=== PATIENT | male | born 1965 | race Caucasian/White ===

== ENCOUNTER 2021-01-09 11:13 | Outpatient (REF) | payer BC, SELFPAY ==
[2021-01-09 11:59] LABS: Estimated Average Glucose 157 mg/dL; Hemoglobin A1c % 7.1 %
[2021-01-09 12:19] LABS: Alanine Aminotransferase 89 U/L (0-40); Albumin Level 4.5 g/dL (3.5-5.0); Alkaline Phosphatase 95 U/L (39-117); Aspartate Amino Transferase 57 U/L (5-37); Bilirubin Direct 0.6 mg/dL (0.0-0.5); Bilirubin Total 1.5 mg/dL (0.0-1.0); Cholesterol 195 mg/dL; Glucose Fasting 206 mg/dL (60-99); HDL Cholesterol 28 mg/dL; LDL Cholesterol Calculated 112 mg/dl; Total Protein 7.6 g/dL (6.5-8.0); Triglycerides 275 mg/dL
[2021-01-09 13:18] LABS: Reflex LDLD? No
== END 2021-01-09 11:14 | disposition home or self-care (01) ==
LOC: HO.LNP 11:13
PROVIDERS: PCP Internal Medicine; Visit Provider Internal Medicine
DX: R79.89 Other specified abnormal findings of blood chemistry (principal); E78.2 Mixed hyperlipidemia; E11.9 Type 2 diabetes mellitus without complications
CPT/HCPCS: 80061; 80076; 82947; 83036

== ENCOUNTER 2021-07-11 10:32 | Outpatient (REF) | payer BC, SELFPAY ==
[2021-07-11 10:39] LABS: MANUAL DIFF FLAG NO
[2021-07-11 11:00] LABS: Basophils Absolute Auto 0.1 X10*3/uL (0.0-0.2); Basophils Percent Auto 0.8 % (0-2); Eosinophils Absolute Auto 0.3 X10*3/uL (0.0-0.4); Eosinophils Percent Auto 4.6 % (0-4); Hemoglobin 14.1 g/dl (14.0-18.0); Imm Gran Abs Auto 0.05 X10*3/uL (0.00-0.03); Imm Gran Pct Auto 0.7 % (0.0-0.4); Lymphocytes Absolute Auto 2.3 X10*3/uL (1.2-4.9); Lymphocytes Percent Auto 31.6 % (20-40); Mean Corpuscular HGB Conc 35.3 g/dl (31.0-36.0); Mean Corpuscular Hemoglobin 32.4 pg (27.0-33.0); Mean Platelet Volume 10.3 fL (9.4-12.4); Monocytes Absolute Auto 0.5 X10*3/uL (0.1-1.2); Monocytes Percent Auto 6.5 % (2-11); Neutrophils Percent Auto 55.8 % (45-73); Platelet Count 166 X10*3/uL (160-400); Red Blood Count 4.35 X10*6/uL (4.60-5.80); Red Cell Distribution Width 12.3 % (11.0-16.0); White Blood Count 7.2 X10*3/uL (4.8-10.8)
[2021-07-11 11:14] LABS: Alanine Aminotransferase 53 U/L (0-40); Albumin Level 4.3 g/dL (3.5-5.0); Alkaline Phosphatase 93 U/L (39-117); Anion Gap 11 (12-20); Aspartate Amino Transferase 30 U/L (5-37); Bilirubin Total 0.9 mg/dL (0.0-1.0); Blood Urea Nitrogen 13 mg/dL (9-16); Calcium 9.3 mg/dL (8.4-10.2); Carbon Dioxide 26 mmol/L (22-29); Chloride 105 mmol/L (96-108); Cholesterol 217 mg/dL; Estimated Glomerular Filt Rate > 60; Glucose Fasting 224 mg/dL (60-99); HDL Cholesterol 35 mg/dL; LDL Cholesterol Calculated 131 mg/dl; Sodium 138 mmol/L (135-145); Total Protein 7.3 g/dL (6.5-8.0); Triglycerides 258 mg/dL
[2021-07-11 11:15] LABS: Estimated Average Glucose 163 mg/dL; Hemoglobin A1c % 7.3 %
[2021-07-11 11:23] LABS: Reflex LDLD? No
[2021-07-11 11:33] LABS: Appearance Urine CLEAR; Color Urine YELLOW; Glucose Urine UA 500 MG/DL (NEG); Leukocyte Esterase Urine NEG (NEG); Nitrite Urine NEG (NEG); Specific Gravity - Urine 1.025 (1.005-1.025); Urine Blood NEG (NEG); Urine Ketones NEG (NEG); Urine Protein NEG (NEG-TRACE)
[2021-07-11 11:36] LABS: PSA,Total (Free>4and<10) 0.45 ng/mL (0.00-4.00)
[2021-07-11 11:37] LABS: Creatinine Urine 142.87 mg/dL; Microalbum/Creatinine Ratio Ur 18.1 ug/mg cr
== END 2021-07-11 10:33 | disposition home or self-care (01) ==
LOC: HO.LNP 10:32
PROVIDERS: Visit Provider Internal Medicine
DX: Z00.00 Encounter for general adult medical examination without abnormal findings (principal); R79.89 Other specified abnormal findings of blood chemistry; E78.6 Lipoprotein deficiency; E78.2 Mixed hyperlipidemia; I10 Essential (primary) hypertension; E11.9 Type 2 diabetes mellitus without complications; Z12.5 Encounter for screening for malignant neoplasm of prostate
CPT/HCPCS: 80053; 80061; 81003; 82043; 83036; 84153; 85025

== ENCOUNTER 2022-03-22 10:50 | Outpatient (REF) | payer BC, SELFPAY ==
[2022-03-22 11:06] LABS: Alanine Aminotransferase 116 U/L (0-40); Albumin Level 4.2 g/dL (3.5-5.0); Alkaline Phosphatase 97 U/L (39-117); Aspartate Amino Transferase 66 U/L (5-37); Bilirubin Direct 0.4 mg/dL (0.0-0.5); Bilirubin Total 0.7 mg/dL (0.0-1.0); Cholesterol 198 mg/dL; HDL Cholesterol 29 mg/dL; Total Protein 7.5 g/dL (6.5-8.0); Triglycerides 524 mg/dL
[2022-03-22 11:08] LABS: Estimated Average Glucose 220 mg/dL; Hemoglobin A1c % 9.3 %
[2022-03-22 11:41] LABS: Creatinine Urine 86.76 mg/dL
[2022-03-22 11:57] LABS: Reflex LDLD? Yes
[2022-03-24 08:12] LABS: LDL Cholesterol Direct 86 mg/dL (<100)
== END 2022-03-22 10:51 | disposition home or self-care (01) ==
LOC: HO.LNP 10:50
PROVIDERS: Visit Provider Internal Medicine
DX: E78.2 Mixed hyperlipidemia (principal); E11.9 Type 2 diabetes mellitus without complications
CPT/HCPCS: 80061; 80076; 82043; 83036; 83721

== ENCOUNTER 2022-06-29 11:56 | Outpatient (REF) | payer BC, SELFPAY ==
[2022-06-29 12:19] LABS: Alanine Aminotransferase 155 U/L (0-40); Albumin Level 4.5 g/dL (3.5-5.0); Alkaline Phosphatase 95 U/L (39-117); Aspartate Amino Transferase 99 U/L (5-37); Bilirubin Direct 0.5 mg/dL (0.0-0.5); Bilirubin Total 1.2 mg/dL (0.0-1.0); Cholesterol 194 mg/dL; HDL Cholesterol 29 mg/dL; Total Protein 7.7 g/dL (6.5-8.0); Triglycerides 487 mg/dL
[2022-06-29 12:22] LABS: Estimated Average Glucose 189 mg/dL; Hemoglobin A1c % 8.2 %
[2022-06-29 12:27] LABS: Reflex LDLD? Yes
[2022-07-01 21:07] LABS: LDL Cholesterol Direct 78 mg/dL (<100)
== END 2022-06-29 11:57 | disposition home or self-care (01) ==
LOC: HO.LNP 11:56
PROVIDERS: Visit Provider Internal Medicine
DX: E11.9 Type 2 diabetes mellitus without complications (principal)
CPT/HCPCS: 80061; 80076; 83036; 83721

== ENCOUNTER 2022-09-20 11:38 | Outpatient (REF) | payer BC, SELFPAY ==
[2022-09-20 11:42] LABS: MANUAL DIFF FLAG NO
[2022-09-20 11:57] LABS: Basophils Absolute Auto 0.1 X10*3/uL (0.0-0.2); Basophils Percent Auto 0.8 % (0-2); Eosinophils Absolute Auto 0.2 X10*3/uL (0.0-0.4); Eosinophils Percent Auto 3.4 % (0-4); Hematocrit 43.6 % (42.0-52.0); Hemoglobin 15.4 g/dl (14.0-18.0); Imm Gran Abs Auto 0.04 X10*3/uL (0.00-0.03); Imm Gran Pct Auto 0.6 % (0.0-0.4); Lymphocytes Absolute Auto 2.3 X10*3/uL (1.2-4.9); Lymphocytes Percent Auto 35.2 % (20-40); Mean Corpuscular HGB Conc 35.3 g/dl (31.0-36.0); Mean Corpuscular Hemoglobin 33.2 pg (27.0-33.0); Mean Platelet Volume 10.1 fL (9.4-12.4); Monocytes Absolute Auto 0.5 X10*3/uL (0.1-1.2); Monocytes Percent Auto 7.3 % (2-11); Neutrophils Absolute Auto 3.5 x10*3/uL (2.0-8.3); Neutrophils Percent Auto 52.7 % (45-73); Platelet Count 146 X10*3/uL (160-400); Red Blood Count 4.64 X10*6/uL (4.60-5.80); Red Cell Distribution Width 12.5 % (11.0-16.0); White Blood Count 6.6 X10*3/uL (4.8-10.8)
[2022-09-20 12:04] LABS: Appearance Urine Clear; Color Urine Yellow; Glucose Urine UA >=1000 mg/dL (Negative); Leukocyte Esterase Urine Negative (Negative); Nitrite Urine Negative (Negative); Specific Gravity - Urine >= 1.030 (1.005-1.025); UMIC TRIGGER UA YES; Urine Blood Negative (Negative); Urine Ketones Negative (Negative); Urine Protein Negative (Neg-Trace)
[2022-09-20 12:05] LABS: Estimated Average Glucose 237 mg/dL; Hemoglobin A1c % 9.9 %
[2022-09-20 12:09] LABS: Bacteria Urine None Seen (None Seen); Hyaline Casts Urine 0-2 /LPF (0-2); RBC Urine 0-2 /HPF (0-2); Squamous Epithelial Cell Urine 0-2 /HPF (0-2); WBC Urine 0-5 /HPF (0-5)
[2022-09-20 12:30] LABS: Alanine Aminotransferase 148 U/L (0-40); Albumin Level 4.4 g/dL (3.5-5.0); Alkaline Phosphatase 98 U/L (39-117); Anion Gap 13 (12-20); Aspartate Amino Transferase 108 U/L (5-37); Bilirubin Total 1.3 mg/dL (0.0-1.0); Blood Urea Nitrogen 15 mg/dL (9-16); Calcium 9.6 mg/dL (8.4-10.2); Carbon Dioxide 27 mmol/L (22-29); Chloride 101 mmol/L (96-108); Cholesterol 230 mg/dL; Estimated Glomerular Filt Rate > 60; Glucose Fasting 247 mg/dL (60-99); HDL Cholesterol 31 mg/dL; PSA,Total (Free>4and<10) 0.32 ng/mL (0.00-4.00); Potassium 3.7 mmol/L (3.3-5.1); Sodium 137 mmol/L (135-145); Total Protein 7.6 g/dL (6.5-8.0); Triglycerides 480 mg/dL
[2022-09-20 12:55] LABS: Creatinine Urine 123.26 mg/dL; Microalbum/Creatinine Ratio Ur 41.3 ug/mg cr
== END 2022-09-20 11:39 | disposition home or self-care (01) ==
LOC: HO.LNP 11:38
PROVIDERS: Visit Provider Internal Medicine
DX: Z00.00 Encounter for general adult medical examination without abnormal findings (principal); Z12.5 Encounter for screening for malignant neoplasm of prostate; R79.89 Other specified abnormal findings of blood chemistry; E78.2 Mixed hyperlipidemia; E11.9 Type 2 diabetes mellitus without complications; I10 Essential (primary) hypertension
CPT/HCPCS: 80053; 80061; 81001; 82043; 83036; 84153; 85025

== ENCOUNTER 2022-10-08 07:48 | Outpatient (REF) | payer BC, SELFPAY ==
--- NOTE | ~2022-10-08 | US_ITS ---
EXAMINATION: US ABDOMEN COMPLETE CLINICAL INFORMATION: Hepatomegaly. COMPARISON: None TECHNIQUE: Real-time imaging of the abdominal viscera. FINDINGS: PANCREAS: Visualized portions of the pancreas are unremarkable. The pancreatic tail is obscured by bowel gas. ABDOMINAL AORTA: The proximal, mid, and distal segments are normal in caliber. INFERIOR VENA CAVA: Visualized portions are normal. LIVER: Liver is enlarged measuring 19.2 cm in span. The liver contour is normal. There is diffuse increased liver parenchymal echogenicity, consistent with hepatic steatosis. No focal hepatic lesion. There is no intrahepatic biliary duct dilatation seen. GALLBLADDER: Normal. The gallbladder is physiologically distended without evidence of stones, sludge, polyps, wall thickening or pericholecystic fluid. COMMON BILE DUCT: Normal in caliber measuring 0.3 cm in diameter. RIGHT KIDNEY: 6 mm nonobstructing lower pole renal stone. Lobular renal contour. No hydronephrosis or focal parenchymal lesions. The kidney measures 12.1 cm in maximum dimension. LEFT KIDNEY: 9 mm nonobstructing lower pole renal stone. No hydronephrosis or focal parenchymal lesions. The kidney measures 11.6 cm in maximum dimension. SPLEEN: Normal. The spleen measures 12.3 cm in maximum dimension. FREE FLUID: None. US/US abdomen complete IMPRESSION: Hepatomegaly. Increased hepatic echogenicity which can be seen in the setting of hepatic steatosis or underlying liver disease. Bilateral nonobstructing renal stones measuring up to 9 mm in the left lower pole.
== END 2022-10-08 07:49 | disposition home or self-care (01) ==
LOC: HO.US 07:48
PROVIDERS: Visit Provider Internal Medicine
DX: E11.9 Type 2 diabetes mellitus without complications (principal); R16.0 Hepatomegaly, not elsewhere classified
CPT/HCPCS: 76700

== ENCOUNTER 2023-03-29 11:41 | Outpatient (REF) | payer BC, SELFPAY ==
[2023-03-29 12:31] LABS: Alanine Aminotransferase 55 U/L (0-40); Albumin Level 4.2 g/dL (3.5-5.0); Alkaline Phosphatase 95 U/L (39-117); Aspartate Amino Transferase 36 U/L (5-37); Bilirubin Direct 0.3 mg/dL (0.0-0.5); Cholesterol 157 mg/dL; HDL Cholesterol 25 mg/dL; Total Protein 7.7 g/dL (6.5-8.0); Triglycerides 567 mg/dL
[2023-03-29 14:42] LABS: Reflex LDLD? Yes
[2023-03-30 09:14] LABS: LDL Cholesterol Direct 71 mg/dL (<100)
== END 2023-03-29 11:42 | disposition home or self-care (01) ==
LOC: HO.LNP 11:41
PROVIDERS: Visit Provider Internal Medicine
DX: E11.9 Type 2 diabetes mellitus without complications (principal); E78.2 Mixed hyperlipidemia
CPT/HCPCS: 80061; 80076; 83721

== ENCOUNTER 2023-04-26 06:21 | Day surgery (SDC) | payer BC, SELFPAY ==
--- NOTE | 2023-04-25 11:38 | P.CONAN_ITS ---
Documented by User: Rama Dwyer NP 04/25/23 11:39 HPI - Anesthesia Eval Consult details Narrative: 57yo M for Colonoscopy [facility] Past Medical History Medical History Diabetes Hepatomegaly HLD (hyperlipidemia) HTN (hypertension) Surgical History Surgical History (Updated 04/26/23 @ 06:45 by Queenie Pickard RN) H/O hand surgery H/O wrist surgery Hx of colonoscopy S/P colon resection Social History Social History Patient Tobacco Use Status: Never used Tobacco Are you DNR?: No Advance Directives: No Advance Directives Information Provided: Yes Nutrition Risks: No Nutritional Risk Meds Allergies Allergy/AdvReac Type Severity Reaction Status Date / Time No Known Allergies Allergy Verified 04/26/23 06:45 Home Medications Medication Instructions Recorded Confirmed Last Taken Type Sleep Aid (diphenhydramine) 25 mg PO BEDTIME 04/24/23 04/24/23 Unknown History amlodipine 5 mg tablet 5 mg PO DAILY 04/24/23 04/24/23 Unknown History atorvastatin 20 mg tablet 20 mg PO DAILY 04/24/23 04/24/23 Unknown History metformin 500 mg tablet 500 mg PO BID 04/24/23 04/24/23 Unknown History valsartan 320 1 tab PO DAILY 04/24/23 04/24/23 Unknown History mg-hydrochlorothiazide 12.5 mg tablet Exam Exam Date and Time: April 25, [id number] Assessment and Plan Assessment Anesthesia Assessment: Chart Reviewed Documented by User: Mary Navarro MD 04/26/23 07:58 [facility] Past Medical History Medical History Diabetes Hepatomegaly HLD (hyperlipidemia) HTN (hypertension) Family History Family history of problems with anesthesia: No Surgical History Surgical History (Updated 04/26/23 @ 06:45 by Queenie Pickard RN) H/O hand surgery H/O wrist surgery Hx of colonoscopy S/P colon resection History of Problems with Anesthesia: No Social History Social History Patient Tobacco Use Status: Never used Tobacco Are you DNR?: No Advance Directives: No Advance Directives Information Provided: Yes Nutrition Risks: No Nutritional Risk Meds Allergies Allergy/AdvReac Type Severity Reaction Status Date / Time No Known Allergies Allergy Verified 04/26/23 06:45 Home Medications Medication Instructions Recorded Confirmed Last Taken Type Sleep Aid (diphenhydramine) 25 mg PO BEDTIME 04/24/23 04/24/23 Unknown History amlodipine 5 mg tablet 5 mg PO DAILY 04/24/23 04/24/23 Unknown History atorvastatin 20 mg tablet 20 mg PO DAILY 04/24/23 04/24/23 Unknown History metformin 500 mg tablet 500 mg PO BID 04/24/23 04/24/23 Unknown History valsartan 320 1 tab PO DAILY 04/24/23 04/24/23 Unknown History mg-hydrochlorothiazide 12.5 mg tablet Exam Airway Mallampati Class: I TM Dist: >3cm Neck ROM: Full Loose/Missing/Broken Teeth: No Heart: rr Lungs: cta Assessment and Plan Assessment Anesthesia Assessment: Anesthesia Plan Discussed Final Anesthetic Review Family History of Problems with Anesthesia: No History of Problems with Anesthesia: No NPO: Yes ASA Class: II Final Preanesthetic Review: No Changes in Pt Med Stat, Meds/Allgs Chart Reviewed, Consent Obtained/Reviewed and Anes Risks/Benef Reviewed Patient Risk: Low Anesthetic Plan Anesthetic Plan: MAC: Disposition: Standard PACU
[2023-04-26 06:09] VITALS: BMI 23.7
[2023-04-26] MEDS: Lactated Ringers 1,000 ML 100 ML IVCONT (06:34)
[2023-04-26 06:44] VITALS: BP 120/77; PULSE 83; RESP 18; TEMP 36.7; O2SAT 97
[2023-04-26 06:45] LABS: Glucose, Whole Blood 193 mg/dL (60-115)
[2023-04-26 08:30] VITALS: BP 94/52; PULSE 82; RESP 16; TEMP 36.6; O2SAT 96
--- NOTE | 2023-04-26 08:32 | PM.OP ---
Brief Operative Note Date of Service: 04/26/23 Pre-op diagnosis: Screening Post-op diagnosis: other (Distal rectal polyp) Procedure: Colonoscopy to the cecum and TI with hot snare polypectomy Surgeon: Alfonso Klein Anesthesia: MAC Was an [employer] Worker used for this Procedure?: No Estimated blood loss (mL): 0 Pathology: other (A. Distal rectal polyp) Condition: stable Disposition: PACU
[2023-04-26 08:45] VITALS: BP 100/73; PULSE 69; RESP 18; TEMP 36.3; O2SAT 99
--- NOTE | 2023-04-26 08:59 | OP_ITS ---
DATE OF SERVICE: 04/26/2023 SURGEON: Alfonso Klein MD INDICATIONS: The patient presents for evaluation of colorectal cancer screening. Full consent obtained from him for this, including risks of bleeding and perforation. PREOPERATIVE DIAGNOSIS: Colorectal cancer screening. POSTOPERATIVE DIAGNOSIS: PROCEDURE PERFORMED: Colonoscopy to cecum and terminal ileum with hot snare polypectomy. ESTIMATED BLOOD LOSS: COMPLICATIONS: ANESTHESIA: Monitored anesthesia care. ASSISTANTS: SPECIMENS: POSTOPERATIVE DIAGNOSES: Colorectal cancer screening. Colon polyp, internal hemorrhoids. DESCRIPTION OF PROCEDURE: The patient was placed in the left lateral decubitus position. The digital rectal exam revealed no abnormalities. The Olympus video pediatric colonoscope was entered into the rectum and advanced easily to the cecum. Once in the cecum, I did identify normal-appearing cecal pouch with appendiceal orifice and a normal-appearing ileocecal valve. The terminal ileum was cannulated and appeared normal. The scope was withdrawn back in the colon. The entire cecum and ileocecal valve appeared normal. The scope was slowly, withdrawn assessing all mucosal surfaces carefully. Preparation was excellent. I did not visualize any sign of colitis nor angiodysplasia. His anastomosis appeared normal at approximately 20 cm. In the rectum, seen both in the forward viewing and retroflexed position, was an approximately 12 mm grossly adenomatous polyp with a flat base. This was removed in the forward viewing position by hot snare polypectomy. The polyp was retrieved by suctioning it onto the tip of the scope and taking it out of the patient. The scope was advanced back to the polypectomy site, which appeared clean, without any sign of residual polyp nor bleeding. Internal hemorrhoids were noted in the retroflexed position as well. The scope was withdrawn from the patient. He tolerated the procedure well and was returned to recovery area in stable condition. IMPRESSION: 1. Distal rectal polyp. 2. Internal hemorrhoids. PLAN: The results of the pathology will be checked. I would recommend a repeat colonoscopy in 3 years for further surveillance given the size and appearance of this polyp. He was advised not to use any aspirin and NSAIDs for 1 week. He did not have all of the laboratories I had ordered for him back in November, in regard to his underlying liver disease, which was felt to represent fatty liver. However, he has continued to avoid alcohol, watch his diet, and watch his weight. A liver profile at the very end of February was dramatically improved compared to the one from last August. It was a completely normal liver profile in February, other than an ALT of 55. Nonetheless, I will give him a new lab slip to do the laboratories I wanted to check in regard to potential other causes of liver disease. MD NESTOR King/PAULINE / [phone]
== END 2023-04-26 09:20 | disposition home or self-care (01) ==
PROVIDERS: PCP Internal Medicine; Visit Provider Internal Medicine
PROC: 0DJD8ZZ Inspection of Lower Intestinal Tract, Via Natural or Artificial Opening Endoscopic (ICD-10-PCS; CPT 45378; principal; 2023-04-26 07:30)
DX: Z12.11 Encounter for screening for malignant neoplasm of colon (principal); D12.8 Benign neoplasm of rectum; K64.8 Other hemorrhoids; R16.0 Hepatomegaly, not elsewhere classified; R79.89 Other specified abnormal findings of blood chemistry; Z90.49 Acquired absence of other specified parts of digestive tract; Z98.0 Intestinal bypass and anastomosis status; E11.9 Type 2 diabetes mellitus without complications; I10 Essential (primary) hypertension; E78.5 Hyperlipidemia, unspecified; Z79.84 Long term (current) use of oral hypoglycemic drugs; Z79.899 Other long term (current) drug therapy
CPT/HCPCS: 45385; 82947; 88305

== ENCOUNTER 2023-09-24 10:54 | Outpatient (REF) | payer BC, SELFPAY ==
[2023-09-24 11:00] LABS: MANUAL DIFF FLAG NO
[2023-09-24 11:05] LABS: Basophils Absolute Auto 0.1 X10*3/uL (0.0-0.2); Basophils Percent Auto 0.8 % (0-2); Eosinophils Absolute Auto 0.2 X10*3/uL (0.0-0.4); Eosinophils Percent Auto 2.8 % (0-4); Hematocrit 42.9 % (42.0-52.0); Hemoglobin 15.4 g/dl (14.0-18.0); Imm Gran Abs Auto 0.03 X10*3/uL (0.00-0.03); Imm Gran Pct Auto 0.4 % (0.0-0.4); Lymphocytes Absolute Auto 2.3 X10*3/uL (1.2-4.9); Lymphocytes Percent Auto 31.7 % (20-40); Mean Corpuscular HGB Conc 35.9 g/dl (31.0-36.0); Mean Corpuscular Hemoglobin 31.2 pg (27.0-33.0); Mean Platelet Volume 10.1 fL (9.4-12.4); Monocytes Absolute Auto 0.5 X10*3/uL (0.1-1.2); Monocytes Percent Auto 6.2 % (2-11); Neutrophils Absolute Auto 4.2 x10*3/uL (2.0-8.3); Neutrophils Percent Auto 58.1 % (45-73); Platelet Count 174 X10*3/uL (160-400); Red Blood Count 4.93 X10*6/uL (4.60-5.80); Red Cell Distribution Width 12.5 % (11.0-16.0); White Blood Count 7.2 X10*3/uL (4.8-10.8)
[2023-09-24 11:07] LABS: Appearance Urine Clear; Color Urine Yellow; Glucose Urine UA 100 mg/dL (Negative); Leukocyte Esterase Urine Negative (Negative); Nitrite Urine Negative (Negative); Urine Blood Negative (Negative); Urine Ketones Negative (Negative); Urine Protein Negative (Neg-Trace)
[2023-09-24 11:12] LABS: Bacteria Urine None Seen (None Seen); Hyaline Casts Urine 0-2 /LPF (0-2); RBC Urine 0-2 /HPF (0-2); Squamous Epithelial Cell Urine 0-2 /HPF (0-2); WBC Urine 0-5 /HPF (0-5)
[2023-09-24 11:21] LABS: Estimated Average Glucose 180 mg/dL; Hemoglobin A1c % 7.9 % (<6.0)
[2023-09-24 11:22] LABS: Alanine Aminotransferase 31 U/L (0-40); Albumin Level 4.3 g/dL (3.5-5.0); Alkaline Phosphatase 101 U/L (39-117); Anion Gap 16 (12-20); Aspartate Amino Transferase 31 U/L (5-37); Bilirubin Direct 0.3 mg/dL (0.0-0.5); Blood Urea Nitrogen 16 mg/dL (9-16); Calcium 9.6 mg/dL (8.4-10.2); Carbon Dioxide 23 mmol/L (22-29); Chloride 105 mmol/L (96-108); Cholesterol 223 mg/dL (<200); Estimated Glomerular Filt Rate > 60; Glucose Fasting 197 mg/dL (60-99); HDL Cholesterol 34 mg/dL (>40); LDL Cholesterol Calculated 121 mg/dL (<100); Potassium 3.9 mmol/L (3.3-5.1); Sodium 140 mmol/L (135-145); Total Protein 7.8 g/dL (6.5-8.0); Triglycerides 340 mg/dL (<150)
[2023-09-24 11:35] LABS: Creatinine Urine 116.74 mg/dL; Microalbum/Creatinine Ratio Ur 47.1 ug/mg cr (<30)
[2023-09-24 11:42] LABS: PSA,Total (Free>4and<10) 0.41 ng/mL (0.00-4.00)
== END 2023-09-24 10:55 | disposition home or self-care (01) ==
LOC: HO.LNP 10:54
PROVIDERS: Visit Provider Internal Medicine
DX: Z00.00 Encounter for general adult medical examination without abnormal findings (principal); Z12.5 Encounter for screening for malignant neoplasm of prostate; R79.89 Other specified abnormal findings of blood chemistry; I10 Essential (primary) hypertension; E11.9 Type 2 diabetes mellitus without complications
CPT/HCPCS: 80053; 80061; 80076; 81001; 82043; 82248; 82570; 83036; 84153; 85025

== ENCOUNTER 2024-11-17 11:02 | Outpatient (REF) | payer BC, SELFPAY ==
[2024-11-17 11:10] LABS: MANUAL DIFF FLAG NO
[2024-11-17 11:19] LABS: Appearance Urine Clear; Color Urine Yellow; Glucose Urine UA 500 mg/dL (Negative); Leukocyte Esterase Urine Negative (Negative); Nitrite Urine Negative (Negative); Specific Gravity - Urine >= 1.030 (1.005-1.025); UMIC TRIGGER UACC YES; Urine Blood Trace (Negative); Urine Ketones Negative (Negative); Urine Protein 30 (1+) mg/dL (Neg-Trace)
[2024-11-17 11:20] LABS: Basophils Percent Auto 0.7 % (0-2); Eosinophils Absolute Auto 0.1 X10*3/uL (0.0-0.4); Eosinophils Percent Auto 2.1 % (0-4); Hematocrit 43.4 % (42.0-52.0); Hemoglobin 15.4 g/dl (14.0-18.0); Imm Gran Abs Auto 0.04 X10*3/uL (0.00-0.03); Imm Gran Pct Auto 0.7 % (0.0-0.4); Lymphocytes Percent Auto 17.4 % (20-40); Mean Corpuscular HGB Conc 35.5 g/dl (31.0-36.0); Mean Corpuscular Hemoglobin 32.2 pg (27.0-33.0); Mean Corpuscular Volume 90.8 fL (80.0-98.0); Monocytes Absolute Auto 0.5 X10*3/uL (0.1-1.2); Monocytes Percent Auto 8.4 % (2-11); Neutrophils Absolute Auto 4.1 x10*3/uL (2.0-8.3); Neutrophils Percent Auto 70.7 % (45-73); Platelet Count 155 X10*3/uL (160-400); Red Blood Count 4.78 X10*6/uL (4.60-5.80); Red Cell Distribution Width 11.9 % (11.0-16.0); White Blood Count 5.8 X10*3/uL (4.8-10.8)
[2024-11-17 11:26] LABS: Bacteria Urine None Seen (None Seen); Hyaline Casts Urine 0-2 /LPF (0-2); RBC Urine 0-2 /HPF (0-2); Squamous Epithelial Cell Urine 0-2 /HPF (0-2); WBC Urine 0-5 /HPF (0-5)
[2024-11-17 12:08] LABS: Creatinine Urine 310.97 mg/dL; Microalbum/Creatinine Ratio Ur 81.3 ug/mg cr (<30)
--- OUTSIDE RECORDS SUMMARY | 2024-11-17 12:12 | XMS_ITS ---
Author Organization [facility] Address [address] [place] [address] Care Team Providers Care Clay Artist Name Role Phone Nathaniel Nails MD Primary Care Provider Alfonso Rueda [phone] Encounters Encounter Location Date Provider Diagnosis [facility] [address] [place] [address] 03/10/2024 Alfonso Klein PLAN OF TREATMENT No Information
--- OUTSIDE RECORDS SUMMARY | 2024-11-17 12:12 | XMS_ITS ---
Author Organization Nathaniel Nails MD Address [address] [place] [phone] Care Team Providers Care General Assembler Installer Name Role Phone Nathaniel Nails Primary Care Provider Allergies Allergen (clinical drug ingredient) Drug/Non Drug Allergy documented on EMR Reaction Allergy Type Onset Date Status Niacin got hot, itchy Drug Allergy Ac tive Results Component Value Reference Range Notes Hemoglobin A1c Reviewed date:03/27/2024 09:11:46 AM Interpretation: Performing Lab: Notes/Report: Hemoglobin A1c 8.0 Glucose, finger stick Reviewed date:03/27/2024 09:05:20 AM Interpretation: Performing Lab: Notes/Report: Value 197 REASON FOR VISIT 3 MO F/U Medications Medication SIG (Take, Route, Frequency, Duration) Notes Start Date End Date Status metFORMIN HCl ER 750 MG 2 tablet with ev ening meal Orally Once a day 02/07/2023 Active Valsartan-hydroCHLOROthia zide 320-12.5 MG 1 tablet Orally Once a day Active amLODIPine Besylate 5 MG 1 tablet Orally Once a day 09/27/2022 Active Ibuprofen 800 MG 1 tablet Orally 4 ti mes a day for 30 day(s) 05/25/2011 Not-Taking ProAir RespiClick 108 (90 Base) MCG/ACT 2 puff as needed Inhalation every 4 hrs for 30 days 01/28/2017 Not-Taking Atorvastatin Calcium 20 MG 1 tablet Orally Once a day for 90 days Active Triamcinolone Acetonide 0.1 % 1 application sparingly to affected area Externally Twice a day for 30 days 05/11/2011 Active Ketoconazole 2 % 1 application Externally Once a day for 30 days 09/25/2021 Active Melatonin 5 MG 3 tablet in the even ing Orally Once a day Not-Taking Farxiga 10 mg 1 tablet Orally Once a day for 30 days 07/05/2022 Not-Taking Vital Signs Blood pressure systolic 152 mm Hg 03/27/20 24 Blood pressure diastolic 84 mm Hg 024 Height 74 in 03/27/2024 Weight 196 lbs 03/27/2024 BMI 25.16 kg/m2 03/27/2024 Encounters Encounter Location Date Provider Diagnosis Nathaniel Nails MD [address] [place] [address] Drive [address] [place], [place] [phone] 03/27/2024 Nathaniel Nails Type 2 diabetes mellitus without complication, without long-term current use of insulin E11.9 and Essential hypertension I10 Assessments Encounter Date Diagnosis (ICD Code) Assessment Notes Treatment Notes Treatment Clinical Notes Section Notes 03/27/2024 Type 2 diabetes mellitus without complication, without long-term current use of insulin (ICD-10 - E11.9) 03/27/2024 Essential hypertension (ICD-10 - I10) running a bit high today, will continue to monitor and maintain current regiment Plan Of Treatment Medication Medication Name Sig Start Date Stop Date Notes metFORMIN HCl ER 750 MG 2 tablet with ev ening meal Orally Once a day 02/07/2023 Valsartan-hydroCHLOROthiazid e 320-12.5 MG 1 tablet Orally Once a day amLODIPine Besylate 5 MG 1 tablet Orally Once a day 2021 Treatment Notes Assessment Notes Essential hypertension running a bit hig h today, will continue to monitor and maintain current regiment Next Appt Details Follow Up: 3 Months, Reason: Provider Name:Nathaniel downing, 11/19/2024 09:30:00 AM, [address], [address], [place], [place], [phone], Progress Notes * Jim WEBERDOB:[birth year] (58 yo M)Acc No.[id number]:03/27/2024 Progress Notes Patient:?Jim Weber Provider:?Nathaniel Nails MD :1965???Age:58 Y???Sex:Male Jeanmarie e:03/27/2024 Address:[address] [place] [id number] Subjective: * Chief Complaints: * ???3 MO F/U * HPI: ???Symptom(s):? patient is a 58 yo male here for 3 month follow up visit. * ROS:?General/Constitutional:?Denies?Chills.?Denies?Fatigue.?Denies?Fever.?Denies?Headache.?ENT:?Patient denies?decreased sense of smell , any loss of taste , sore throat.?Denies?Sore throat.?Endocrine:?Denies?Difficulty sleeping.?Denies?Dizziness.?Denies?Excessive sweating.?Denies?Excessive thirst.?Admits?Frequent urination.?Respiratory:?Denies?Cough.?Admits?Shortness of breath at rest.?Cardiovascular:?Denies?Chest pain at rest.?Denies?Chest pain with exertion.?Denies?Dizziness.?Denies?Palpitations.?Denies?Shortness of breath.?Gastrointestinal:?Denies?Diarrhea.?Denies?Nausea.?Musculoskeletal:?Patient denies?muscle aches.?Peripheral Vascular:?Patient denies?red and blue toes.? * Medical History:? * Surgical History:? * Hospitalization/Major Diagno stic Procedure:? * Medications:?TakingTriamcino lone Acetonide 0.1 % Cream 1 application sparingly to affected area Externally Twice a dayKetoconazole 2 % Cream 1 application Externally Once a dayValsartan-hydroCHLOROthiazide 320-12.5 MG Tablet 1 tablet Orally Once a dayamLODIPine Besylate 5 MG Tablet 1 tablet Orally Once a dayAtorvastatin Calcium 20 MG Tablet 1 tablet Orally Once a daymetFORMIN HCl ER 750 MG Tablet Extended Release 24 Hour 2 tablet with evening meal Orally Once a dayTaking Triamcinolone Acetonide 0.1 % Cream 1 application sparingly to affected area Externally Twice a dayTaking Ketoconazole 2 % Cream 1 application Externally Once a dayTaking Valsartan-hydroCHLOROthiazide 320-12.5 MG Tablet 1 tablet Orally Once a dayTaking amLODIPine Besylate 5 MG Tablet 1 tablet Orally Once a dayTaking Atorvastatin Calcium 20 MG Tablet 1 tablet Orally Once a dayTaking metFORMIN HCl ER 750 MG Tablet Extended Release 24 Hour 2 tablet with evening meal Orally Once a dayNot- Taking/PRNFarxiga 10 mg Tablet 1 tablet Orally Once a dayMelatonin 5 MG Tablet 3 tablet in the evening Orally Once a dayProAir RespiClick 108 (90 Base) MCG/ACT Aerosol Powder Breath Activated 2 puff as needed Inhalation every 4 hrsIbuprofen 800 MG Tablet 1 tablet Orally 4 times a dayMedication List reviewed and reconciled with the patientNot-Taking/PRN Farxiga 10 mg Tablet 1 tablet Orally Once a dayNot- Taking/PRN Melatonin 5 MG Tablet 3 tablet in the evening Orally Once a dayNot-Taking/PRN ProAir RespiClick 108 (90 Base) MCG/ACT Aerosol Powder Breath Activated 2 puff as needed Inhalation every 4 hrsNot-Taking/PRN Ibuprofen 800 MG Tablet 1 tablet Orally 4 times a dayMedication List reviewed and reconciled with the patient * Allergies:?Niacin: got hot, itchyyes[Allergies Verified] Objective: * Vitals:?Ht: 74, Wt:196, BMI: 25.16, BP:152/84, Repeat BP:140/94. * Examination: ???General Examination: ?GENERAL APPEARANCE:? alert, well hydrated, in no distress , male.?HEAD:? normocephalic.?SKIN:? good turgor.?HEART:? regular rate and rhythm, no murmurs, rubs, gallops.?LUNGS:? no wheezes, rales, rhonchi, good air movement, clear to auscultation bilaterally.? Assessment: * Assessment: 1.?Type 2 diabetes mellitus without complication, without long-term current use of insulin - E11.9 (Primary)?2.?Essential hypertension - I10? Plan: * Treatment: ? Value Reference Range ?Hemoglobin A1c 8.0 * Yris Gomez 4 09:11:45 AM EDT > ?LAB: Glucose, finger stick* ? Value Reference Range ?Value 197 * Yris Gomez 4 09:05:19 AM EDT > 2.?Essential hypertension? Notes: running a bit high today, will continue to monitor and maintain current regiment.?? * Procedure Codes:?31666 ASSAY , GLUCOSE, BLOOD QUANT, Modifiers: QW 60874 GLYCATED HEMOGLOBIN TEST, Modifiers: QW * Follow Up:?3 Months * * Sign off status: Completed true * Provider:?Nathaniel Nails MD Date:?0 03/27/2024 Generated for Karthik davison/Aquiles/eTransmitting on:?11/17/2024 12:12 PM EST History and Physical Notes * HPI (History of Present Illness) Category Sub-Category Detail Notes Category Not es Symptom(s) patient is a 58 yo male here for 3 month follow up visit. Examination Category Sub-Category Detail Notes Category Not es General Examination GENERAL APPEARANCE: alert, w ell hydrated, in no distress , male HEAD: normocephalic HEART: regular rate and rhy thm, no murmurs, rubs, gallops LUNGS: no wheezes, rales, r honchi, good air movement, clear to auscultation bilaterally SKIN: good turgor
--- OUTSIDE RECORDS SUMMARY | 2024-11-17 12:13 | XMS_ITS ---
Author Organization Nathaniel Nails MD Address [address] [place] [phone] Care Team Providers Care Extension Work Instructor Name Role Phone Nathaniel Nails Primary Care Provider Allergies Allergen (clinical drug ingredient) Drug/Non Drug Allergy documented on EMR Reaction Allergy Type Onset Date Status Niacin got hot, itchy Drug Allergy Ac tive Results Component Value Reference Range Notes Hemoglobin A1c Reviewed date:06/29/2024 03:37:14 PM Interpretation: Performing Lab: Notes/Report: Hemoglobin A1c 7.3 Glucose, finger stick Reviewed date:06/29/2024 03:32:48 PM Interpretation: Performing Lab: Notes/Report: Value 127 REASON FOR VISIT 3 month Medications Medication SIG (Take, Route, Frequency, Duration) Notes Start Date End Date Status ProAir RespiClick 108 (90 Base) MCG/ACT 2 puff as needed Inhalation every 4 hrs for 30 days 01/28/2017 Not-Taking Ibuprofen 800 MG 1 tablet Orally 4 ti mes a day for 30 day(s) 05/25/2011 Not-Taking metFORMIN HCl ER 750 MG 2 tablet with ev ening meal Orally Once a day 02/07/2023 Active Valsartan-hydroCHLOROthia zide 320-12.5 MG 1 tablet Orally Once a day Active amLODIPine Besylate 5 MG 1 tablet Orally Once a day 09/27/2022 Active Farxiga 10 mg 1 tablet Orally Once a day for 30 days 07/05/2022 Not-Taking Melatonin 5 MG 3 tablet in the even ing Orally Once a day Not-Taking Atorvastatin Calcium 20 MG 1 tablet Orally Once a day for 90 days Active Social History Tobacco Use: Social History Observation Description Date Details (start date - stop date) Never Smoker NA - NA Tobacco Use/Smoking Question Answer Notes Patient is a nonsmoker Additional Findings: Tobacco Non-User Cu rrent non-smoker, currently using no form of tobacco Vital Signs Blood pressure systolic 140 mm Hg 06/29/20 24 Blood pressure diastolic 100 mm Hg 024 Height 74 in 06/29/2024 Weight 191 lbs 06/29/2024 BMI 24.52 kg/m2 06/29/2024 weight is down 5 pounds [facility] 03-27-24 Encounters Encounter Location Date Provider Diagnosis Nathaniel Nails MD [address] [place] [address] Drive [address] [place] [phone] 06/29/2024 Nathaniel Nails Type 2 diabetes mellitus without complication, without long-term current use of insulin E11.9 and Essential hypertension I10 Assessments Encounter Date Diagnosis (ICD Code) Assessment Notes Treatment Notes Treatment Clinical Notes Section Notes 06/29/2024 Type 2 diabetes mellitus without complication, without long-term current use of insulin (ICD-10 - E11.9) 06/29/2024 Essential hypertension (ICD-10 - I10) had been rushing to get to appt. will recheck in 3 months Plan Of Treatment Medication Medication Name Sig Start Date Stop Date Notes metFORMIN HCl ER 750 MG 2 tablet with ev ening meal Orally Once a day 02/07/2023 Valsartan-hydroCHLOROthiazid e 320-12.5 MG 1 tablet Orally Once a day amLODIPine Besylate 5 MG 1 tablet Orally Once a day 2021 Treatment Notes Assessment Notes Essential hypertension had been rushing to get to appt. will recheck in 3 months Next Appt Details Provider Name:Nathaniel downing, 11/19/2024 09:30:00 AM, [address] [place] [address], [address], [place], [phone], Progress Notes * Jim WEBERDOB:[birth year] (59 yo M)Acc No.[id number]:06/29/2024 Progress Notes Patient:Jim Gudino Provider:?Nathaniel Nails MD :1965???Age:59 Y???Sex:Male Jeanmarie e:06/29/2024 Address:[address] [place], [phone] Subjective: * Chief Complaints: * ???3 month * HPI: ???Symptom(s):? patient is a 59 yo male here for 3 month follow up visit. * ROS:?General/Constitutional:?Denies?Chills.?Denies?Fatigue.?Denies?Fever.?Denies?Headache.?ENT:?Patient denies?decreased sense of smell , any loss of taste , sore throat.?Denies?Sore throat.?Endocrine:?Denies?Difficulty sleeping.?Denies?Dizziness.?Denies?Excessive sweating.?Denies?Excessive thirst.?Denies?Frequent urination.?Respiratory:?Denies?Cough.?Denies?Shortness of breath at rest.?Denies?Shortness of breath with exertion.?Gastrointestinal:?Denies?Diarrhea.?Denies?Nausea.?Musculoskeletal:?Patient denies?muscle aches.?Peripheral Vascular:?Patient denies?red and blue toes.? * Medical History:? * Surgical History:? * Hospitalization/Major Diagno stic Procedure:? * Social History:?Tobacco Use:?Tobacco Use/Smoking?Patient is a?nonsmoker,?Additional Findings: Tobacco Non-User?Current non-smoker, currently using no form of tobacco.? * Medications:?TakingAtorvasta tin Calcium 20 MG Tablet 1 tablet Orally Once a daymetFORMIN HCl ER 750 MG Tablet Extended Release 24 Hour 2 tablet with evening meal Orally Once a dayValsartan-hydroCHLOROthiazide 320-12.5 MG Tablet 1 tablet Orally Once a dayamLODIPine Besylate 5 MG Tablet 1 tablet Orally Once a dayTaking Atorvastatin Calcium 20 MG Tablet 1 tablet Orally Once a dayTaking metFORMIN HCl ER 750 MG Tablet Extended Release 24 Hour 2 tablet with evening meal Orally Once a dayTaking Valsartan-hydroCHLOROthiazide 320-12.5 MG Tablet 1 tablet Orally Once a dayTaking amLODIPine Besylate 5 MG Tablet 1 tablet Orally Once a dayNot-Taking/PRNFarxiga 10 mg Tablet 1 tablet Orally Once [...] mg Tablet 1 tablet Orally Once a dayNot-Taking/PRN Melatonin 5 MG Tablet 3 tablet in the evening Orally Once a dayNot-Taking/PRN ProAir RespiClick 108 (90 Base) MCG/ACT Aerosol Powder Breath Activated 2 puff as needed Inhalation every 4 hrsNot-Taking/PRN Ibuprofen 800 MG Tablet 1 tablet Orally 4 times a dayMedication List reviewed and reconciled with the patient * Allergies:?Niacin: got hot, itchyyes[Allergies Verified] Objective: * Vitals:?Ht: 74, Wt:191, BMI: 24.52, BP:140/100, Repeat BP:138/98 weight is down 5 pounds since 03-27-24. * Examination: ???General Examination: ?GENERAL APPEARANCE:? alert, well hydrated, in no distress .?HEAD:? normocephalic.?SKIN:? good turgor.?HEART:? regular rate and rhythm, no murmurs, rubs, gallops.?LUNGS:? clear to auscultation bilaterally.? Assessment: * Assessment: 1.?Type 2 diabetes mellitus without complication, without long-term current use of insulin - E11.9 (Primary)?2.?Essential hypertension - I10? Plan: * Treatment: ? Value Reference Range ?Hemoglobin A1c 7.3 * Yris Gomez Vonnie 4 03:37:12 PM EDT > ?LAB: Glucose, finger stick* ? Value Reference Range ?Value 127 * Yris Gomez 4 03:32:46 PM EDT > 2.?Essential hypertension? Continue Valsartan-hydroCHLOROthiazide Tablet, 320-12.5 MG, 1 tablet, Orally, Once a day;?Continue amLODIPine Besylate Tablet, 5 MG, 1 tablet, Orally, Once a day.?? Notes: had been rushing to get to appt. will recheck in 3 months?? * Procedure Codes:?78692 ASSAY , GLUCOSE, BLOOD QUANT, Modifiers: QW 42359 GLYCATED HEMOGLOBIN TEST, Modifiers: QW * * Sign off status: Completed true * Provider:?Nathaniel Nails MD Date:?0 06/29/2024 Generated for Karthik davison/Aquiles/eTransmitting on:?11/17/2024 12:13 PM EST History and Physical Notes * HPI (History of Present Illness) Category Sub-Category Detail Notes Category Not es Symptom(s) patient is a 59 yo male here for 3 month follow up visit Examination Category Sub-Category Detail Notes Category Not es General Examination GENERAL APPEARANCE: alert, w ell hydrated, in no distress HEAD: normocephalic HEART: regular rate and rhy thm, no murmurs, rubs, gallops LUNGS: clear to auscultatio n bilaterally SKIN: good turgor
--- OUTSIDE RECORDS SUMMARY | 2024-11-17 12:13 | XMS_ITS ---
Author Organization [facility] Address [address] [place] [address] Care Team Providers Care Foot Worker Name Role Phone Jesu MCNALLY, Nathaniel Primary Care Provider Alfonso Rueda [phone] REASON FOR VISIT Patient presents today for a colon polyp Encounters Encounter Location Date Provider Diagnosis [facility] [address] [place] [address] 03/10/2024 Alfonso Klein PLAN OF TREATMENT No Information
--- OUTSIDE RECORDS SUMMARY | 2024-11-17 12:13 | XMS_ITS ---
Author Organization [facility] Address [address] [place] [address] Care Team Providers Care Steel Checker Name Role Phone Jesu MCNALLY, Nathaniel Primary Care Provider Alfonso Rueda [phone] REASON FOR VISIT Patient presents today for a colon polyp Encounters Encounter Location Date Provider Diagnosis [facility] [address] [place] [address] 10/10/2023 Alfonso Klein PLAN OF TREATMENT No Information
--- OUTSIDE RECORDS SUMMARY | 2024-11-17 12:13 | XMS_ITS ---
Author Organization Nathaniel Nails MD Address [address] [place] [phone] Care Team Providers Care Children Librarian Name Role Phone Nathaniel Nails Primary Care Provider Results Component Value Reference Range Notes Complete Blood Count Auto Di ff (Not yet reviewed by provider) Interpretation: Performing Lab:[facility], [address] [place] [id number] Notes/Report: White Blood Count 5.8 4.8-10.8 X10*3/uL Red Blood Count 4.78 4.60-5.80 X10*6/uL Hemoglobin 15.4 14.0-18.0 g/dl Hematocrit 43.4 42.0-52.0 % Mean Corpuscular Volume 90.8 80.0-98.0 fL Mean Corpuscular Hemoglobin 32.2 27.0-33.0 pg Mean Corpuscular HGB Conc 35.5 31.0-36.0 g/dl Red Cell Distribution Width 11.9 11.0-16.0 % Platelet Count 155 160-400 X10*3/uL Mean Platelet Volume 10.0 9.4-12.4 fL Neutrophils Percent Auto 70.7 45-73 % Imm Gran Pct Auto 0.7 0.0-0.4 % Lymphocytes Percent Auto 17.4 20-40 % Monocytes Percent Auto 8.4 2-11 % Eosinophils Percent Auto 2.1 0-4 % Basophils Percent Auto 0.7 0-2 % NRBC Pct Auto 0.0 0.0-0.2 /100WBC Neutrophils Absolute Auto 4.1 2.0-8.3 x10*3/u L Imm Gran Abs Auto 0.04 0.00-0.03 X10*3/uL Lymphocytes Absolute Auto 1.0 1.2-4.9 X10*3/u L Monocytes Absolute Auto 0.5 0.1-1.2 X10*3/uL Eosinophils Absolute Auto 0.1 0.0-0.4 X10*3/u L Basophils Absolute Auto 0.0 0.0-0.2 X10*3/uL NRBC Abs Auto 0.000 0.0-0.012 X10*3/uL Microalbumin, Random (Not ye t reviewed by provider) Interpretation: Performing Lab:[address] [phone] Notes/Report: Creatinine Urine 310.97 Microalbumin Urine 253.0 Microalbum/Creatinine Ratio Ur 81.3 <30 ug/mg cr Albumin/Creatinine Ratio Reference Ranges: Normal: < 30 ug/mg creatinine Microalbuminuria: 30 - 300 ug/mg creatinine Clinical Albuminuria: > 300 ug/mg creatinine UA ClnCatch+Micro w/rflx Cul t (Not yet reviewed by provider) Interpretation: Performing Lab:[facility], [address] [place] [phone] Notes/Report: [id number] Urine, Clean Catch Color Urine Yellow Appearance Urine Clear PH 6.0 5.0-9.0 Glucose Urine UA 500 Negative mg/dL Urine Blood Trace Negative Specific [place] - Urine >= 1.030 1.005-1.025 Urine Protein 30 (1+) Neg-Trace mg/dL Urine Ketones Negative Negative mg/dL Nitrite Urine Negative Negative Leukocyte Esterase Urine Negative Negative RBC Urine 0-2 0-2 /HPF WBC Urine 0-5 0-5 /HPF Squamous Epithelial Cell Urine 0-2 0-2 /HPF Bacteria Urine None Seen None Seen Hyaline Casts Urine 0-2 0-2 /LPF REASON FOR VISIT Annual labs Encounters Encounter Location Date Provider Diagnosis Nathaniel Nails MD [address] [place] [address] [place] [phone] 11/17/2024 Nathaniel Nails Blood tests for routine general physical examination Z00.00 ; Abnormal LFTs R79.89 ; Elevated cholesterol with elevated triglycerides E78.2 ; Essential hypertension I10 and Type 2 diabetes mellitus without complication, without long-term current use of insulin E11.9 Assessments Encounter Date Diagnosis (ICD Code) Assessment Notes Treatment Notes Treatment Clinical Notes Section Notes 11/17/2024 Blood tests for routine general physical examination (ICD-10 - Z00.00) 11/17/2024 Abnormal LFTs (ICD-10 - R79.89) 11/17/2024 Elevated cholesterol with elevated triglycerides (ICD-10 - E78.2) 11/17/2024 Essential hypertension (ICD-10 - I10) 11/17/2024 Type 2 diabetes mellitus without complication, without long-term current use of insulin (ICD-10 - E11.9) Plan Of Treatment Pending Test Test Name Order Date Complete Blood Count Auto Diff 5 Comprehensive [place]. Panel Fast 5 Lipid Panel 11/17/2024 PSA,Total (Free>4and<10) 11/17/2024 Microalbumin, Random 11/17/2024 Hemoglobin A1c 11/17/2024 UA ClnCatch+Micro w/rflx Cult 11/17/2024 Next Appt Details Provider Name:Nathaniel Rousseau ier, 11/19/2024 09:30:00 AM, [address] [place] [address] Drive, [address], [place], [place], [phone], Progress Notes * Jim WEBERDOB:[birth year] (59 yo M)Acc No.[id number]:11/17/2024 Progress Note Patient:?Jim WEBER Ivana Provider:?Nathaniel Nails MD :1965???Age:59 Y???Sex:Male Jeanmarie e:11/17/2024 [address] [id number] Subjective: * Chief Complaints: * ???1. Annual labs. * Medical History:? Objective: * Vitals:? Assessment: * Assessment: 1.?Blood tests for routine g eneral physical examination - Z00.00 (Primary)???2.?Abnormal LFTs - R79.89???3.?Elevated cholesterol with elevated triglycerides - E78.2???4.?Essential hypertension - I10???5.?Type 2 diabetes mellitus without complication, without long-term current use of insulin - E11.9??? Plan: * Treatment: 2.?Abnormal LFTs?LAB: Complete Blood Count Auto Diff (Collection Date & Time - 11/17/2024 08:15 AM) ?LAB: Comprehensive [place]. Panel Fast ?LAB: Lipid Panel ?LAB: PSA,Total (Free>4and<10) ?LAB: UA ClnCatch+Micro w/rflx Cult (Collection Date & Time - 11/17/2024 08:15 AM) 3.?Elevated cholesterol with elevated triglycerides?LAB: Complete Blood Count Auto Diff (Collection Date & Time - 11/17/2024 08:15 AM) ?LAB: Comprehensive [place]. Panel Fast ?LAB: Lipid Panel ?LAB: PSA,Total (Free>4and<10) ?LAB: UA ClnCatch+Micro w/rflx Cult (Collection Date & Time - 11/17/2024 08:15 AM) 4.?Essential hypertension?LAB: Complete Blood Count Auto Diff (Collection Date & Time - 11/17/2024 08:15 AM) ?LAB: Comprehensive [place]. Panel Fast ?LAB: Lipid Panel ?LAB: PSA,Total (Free>4and<10) ?LAB: UA ClnCatch+Micro w/rflx Cult (Collection Date & Time - 11/17/2024 08:15 AM) 5.?Type 2 diabetes mellitus without complication, without long-term current use of insulin?LAB: Complete Blood Count Auto Diff (Collection Date & Time - 11/17/2024 08:15 AM) ?LAB: Comprehensive [place]. Panel Fast ?LAB: Lipid Panel ?LAB: PSA,Total (Free>4and<10) ?LAB: Microalbumin, Random (Collection Date & Time - 11/17/2024 08:15 AM) ?LAB: Hemoglobin A1c ?LAB: UA ClnCatch+Micro w/rflx Cult (Collection Date & Time - 11/17/2024 08:15 AM) * Procedure Codes:?61725 VENIP UNCT, ROUTINE* * * The named appointment provid er may or may not be the originator of this progress note, and it is not deemed complete until electronically signed by the appointment provider. Sign off status: Pending * Provider:?Nathaniel Nails MD Date:?0 11/17/2024 Generated for Karthik davison/Aquiles/Michaelitting on:?11/17/2024 12:12 PM EST
--- OUTSIDE RECORDS SUMMARY | 2024-11-17 12:13 | XMS_ITS | Patient Health Record ---
Author Organization [facility] Address [address] [place] [address] Care Team Providers Care Senior Escrow Officer Name Role Phone Nathaniel Kenney MD Primary Care Provider Alfonso Rueda Unavailable [phone] ALLERGIES No Known Allergies REASON FOR REFERRAL Referring Provider First Name Nathaniel Referring Provider Last Name Jesu Referring Provider Speciality Internal M edicine Referred Organization [facility] Referred Provider Alfonso Klein Referred Address [address] [facility],[place], [place],[address], Referred Provider Specialty Gastroentero logy General Notes Cindy Bob 024 08:23:00 AM EDT > call dr kenney's office to request an [facility] referral for visit with Dr. Klein on 03-10-2024 dx colon polyp, Cindy Bob 02/06/2024 09:23:38 AM EDT > REQUESTED REFERRAL FROM DR KENNEY'S OFFICE Referral Priority Routine MEDICATIONS Medication SIG (Take, Route, Frequency, Duration) Notes Start Date End Date Status Sleep Aid 25 MG 1 tablet at bedtime as needed Orally Once a day for 30 day(s) Active amLODIPine Besylate 5 MG Oral for 90 Active Atorvastatin Calcium 20 MG TAKE 1 TABLET BY MOUTH EVERY DAY FOR 90 DAYS Oral for 90 Active metFORMIN HCl 500 MG TAKE 1 TABLET BY [facility] TWICE A DAY WITH MEALS Oral for 90 Active Valsartan-hydroCHLOROthiazi de 320-12.5 MG TAKE 1 TABLET BY MOUTH EVERY DAY Oral for 90 Active IMMUNIZATIONS Vaccine Route Administration Date Status Comme nts Influenza Unknown 12/06/2022 Refused SOCIAL HISTORY Tobacco Use: Social History Observation Description Date Details (start date - stop date) Never Smoker NA - NA Sex Assigned At : Social History Observation Description Sex Assigned At Unknown Tobacco Use/Smoking Question Answer Notes Patient is a nonsmoker Alcohol Screen Question Answer Notes Did you have a drink containing alcohol in the p ast year? 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 [address] [place] [phone] 03/10/2024 Alfonso Klein [facility] [address] [place] [phone] 03/10/2024 Alfonso Klein PLAN OF TREATMENT Pending Test Test Name Order Date LIVER PROFILE 12/06/2022 IRON + IBC (FE) 12/06/2022 CBC w DIFF 12/06/2022 PROTHROMBIN TIME (PT, INR) 12/06/2022 HEPATITIS B, C PROFILE 12/06/2022 FLUOR. ANTINUCLEAR AB SCREEN (MAIA) 05/2023 Ferritin 12/06/2022 Alpha 1 Anti-trypsin 12/06/2022 Liver Fibrosis Pnl 12/06/2022 Mitochondrial Antibody 12/06/2022 Smooth Muscle Antibody 12/06/2022 Hepatitis A Antibody IgG 12/06/2022 Future Test Test Name Order Date COLONOSCOPY 12/06/2022 Insurance Providers Payer Name Payer Address Payer Phone Subscriber Number Group Number Insured Name Patient Relationship to Insured Coverage Start Date Coverage End Date [facility] [address] [place] [address] [id number] Cheli RIOS KAMRYN Self - patient is the insured MEDICAL (GENERAL) HISTORY Medical History History ICD Code NIDDM Hypertension Hyperlipidemia Denies [place],CVA,Lung disease,renal disease Elevated LFTs with hepatomeg jessica evaluated at the November 2022 office visit--this was felt to be in relation to probable steatohepatitis from associated risk factors of poorly controlled diabetes, hyperlipidemia, elevated BMI, and some alcohol use. Surgical History Surgery Date(Month/Year) hand surgery left 1986 back surgery lower 1994 diverticulitis with partial colon resect ion at [facility] 1999 wrist surgery 2009
[2024-11-17 12:20] LABS: Estimated Average Glucose 203 mg/dL; Hemoglobin A1C 279.3076 umol/L; Hemoglobin A1c % 8.7 % (<6.0); Total Hemoglobin (HGBA1C) 3888.5357 umol/L
[2024-11-17 12:24] LABS: Alanine Aminotransferase 67 U/L (0-40); Albumin Level 4.3 g/dL (3.5-5.0); Alkaline Phosphatase 103 U/L (39-117); Anion Gap 14 (12-20); Aspartate Amino Transferase 48 U/L (5-37); Bilirubin Total 1.3 mg/dL (0.0-1.0); Blood Urea Nitrogen 11 mg/dL (9-16); Calcium 9.3 mg/dL (8.4-10.2); Carbon Dioxide 25 mmol/L (22-29); Chloride 103 mmol/L (96-108); Cholesterol 204 mg/dL (<200); Estimated Glomerular Filt Rate > 60; Glucose Fasting 214 mg/dL (60-99); HDL Cholesterol 31 mg/dL (>40); LDL Cholesterol Calculated 103 mg/dL (<100); Potassium 3.8 mmol/L (3.3-5.1); Sodium 138 mmol/L (135-145); Triglycerides 350 mg/dL (<150)
[2024-11-17 12:28] LABS: PSA,Total (Free>4and<10) 0.34 ng/mL (0.00-4.00)
== END 2024-11-17 11:03 | disposition home or self-care (01) ==
LOC: HO.LNP 11:02
PROVIDERS: Visit Provider Internal Medicine
DX: Z00.00 Encounter for general adult medical examination without abnormal findings (principal); R79.89 Other specified abnormal findings of blood chemistry; E78.2 Mixed hyperlipidemia; I10 Essential (primary) hypertension; E11.9 Type 2 diabetes mellitus without complications; Z12.5 Encounter for screening for malignant neoplasm of prostate
CPT/HCPCS: 80053; 80061; 81001; 82043; 82570; 83036; 84153; 85025

== ENCOUNTER 2025-07-19 10:18 | Outpatient (REF) | payer BC, SELFPAY ==
[2025-07-19 11:45] LABS: Alanine Aminotransferase 43 U/L (0-40); Albumin Level 4.4 g/dL (3.5-5.0); Alkaline Phosphatase 82 U/L (39-117); Aspartate Amino Transferase 33 U/L (5-37); Cholesterol 150 mg/dL (<200); HDL Cholesterol 32 mg/dL (>40); Total Protein 7.1 g/dL (6.5-8.0); Triglycerides 281 mg/dL (<150)
[2025-07-19 12:00] LABS: Reflex LDLD? No
== END 2025-07-19 10:19 | disposition home or self-care (01) ==
LOC: HO.LNP 10:18
PROVIDERS: Visit Provider Internal Medicine
DX: E11.9 Type 2 diabetes mellitus without complications (principal); E78.2 Mixed hyperlipidemia
CPT/HCPCS: 80061; 80076; 82947; 83036